=== PATIENT | male | born 1945 | race Caucasian/White ===

== ENCOUNTER 2016-11-02 00:46 | Inpatient (IN) | payer OTHER ==
[~2016-11-02] VITALS: Ht 175.3 cm; Wt 93.7 kg
[2016-11-02 02:31] LABS: EOSINOPHIL (%) 0.6 % (0-5); EOSINOPHIL COUNT 0.1 K/uL (0-0.3); HEMATOCRIT 39.9 % (38.0-50.0); IMMATURE GRANULOCYTE (%) 0.3 % (0.0-0.7); INSTRUMENT ABS NEUTROPHIL CT 6.8 K/uL; LYMPHOCYTE COUNT 1.8 K/uL (1.0-2.8); MCH 28.7 PG (29.0-34.0); MCHC 34.3 G/DL (30.0-36.0); MCV 83.6 FL (86-99); MONOCYTE (%) 7.4 % (3-12); MONOCYTE COUNT 0.7 K/uL (0-0.8); NEUTROPHIL (%) 71.9 % (45-76); NEUTROPHIL COUNT 6.8 K/uL (1.8-6.4); RBC DIS.WIDTH-CV 13.1 % (11.8-14.6); RBC DIS.WIDTH-SD 39.5 % (39-53); RED BLOOD COUNT 4.77 M/uL (4.00-5.50); WHITE BLOOD COUNT 9.4 K/uL (4.1-10.2)
[2016-11-02 03:18] LABS: CHLORIDE 110 mEq/L (99-109); POTASSIUM 3.7 mEq/L (3.7-5.4); SODIUM 144 mEq/L (136-147)
[2016-11-02 03:21] LABS: GLUCOSE 101 mg/dL (70-99)
[2016-11-02 03:22] LABS: ANION GAP 14 MEQ/L (2-14); PLAT.SUFFICIENCY ADEQUATE; TOTAL BILIRUBIN 0.8 mg/dL (0.0-1.0)
[2016-11-02 03:23] LABS: PLATELET CLUMPS PRESENT; SERUM ETHYL ALCOHOL < 10 mg/dL
[2016-11-02 03:24] LABS: ALKALINE PHOSPHATASE 69 IU/L (3-129); GFR ESTIMATE (CALCULATED) > 59 mL/min/
[2016-11-02 03:25] LABS: UREA NITROGEN (BUN) 32 mg/dL (9-23)
[2016-11-02 04:15] LABS: BASE EXCESS 4.1 mEq/L (-3 to +3); BICARBONATE 27.4 mEq/L (22-26); CARBOXY HGB 1.5 % (0-5); COMMENTS - BLOOD GASES C+; DEVICE RA; METHEMOGLOBIN 1.1 % (0-1.5); PCO2 36 mm Hg (35-45); PO2 78 mm Hg (80-100); SITE RR; pH 7.49 (7.35-7.45)
[2016-11-02 04:29] LABS: ADD MIUA? YES; BILIRUBIN NEGATIVE; BLOOD SMALL; COLOR YELLOW ((YELLOW)); GLUCOSE (STRIP) NEGATIVE; KETONES 5; LEUKOCYTES NEGATIVE; NITRITE NEGATIVE; PROTEIN (STRIP) NEGATIVE; SPECIFIC GRAVITY 1.014 (1.000-1.030); UROBILINOGEN 0.2 MG/DL (0.2-1.0)
[2016-11-02 04:39] LABS: AMPHETAMINE NEGATIVE (500 ng/mL); BACTERIA NONE SEEN /HPF; BARBITURATES NEGATIVE (200 ng/mL); BENZODIAZEPINES NEGATIVE (150 ng/mL); COCAINE NEGATIVE (150 ng/mL); EPITHELIAL CELLS RARE /HPF; INTERNAL CONTROLS VALID? YES; METHADONE NEGATIVE (200 ng/mL); METHAMPHETAMINE NEGATIVE (500 ng/mL); MUCUS TRACE /LPF; OPIATES (MORPHINE) NEGATIVE (100 ng/mL); OXYCODONE NEGATIVE (100 ng/mL); PHENCYCLIDINE NEGATIVE (25 ng/mL); PROPOXYPHENE NEGATIVE (300 ng/mL); RED BLOOD CELLS 0-5 /HPF (0-5); THC CANNABINOIDS NEGATIVE (50 ng/mL); TRICYCLIC ANTIDEPRESSANTS NEGATIVE (300 ng/mL); UCUL ADDED? NO; WHITE BLOOD CELLS 0-5 /HPF (0-5)
[2016-11-02 04:47] LABS: POTASSIUM 2.6 mEq/L (3.7-5.4)
[2016-11-02 07:30] VITALS: BP 131/78
[2016-11-02 08:28] LABS: CREATINE KINASE 3266 IU/L (1-294)
[2016-11-02 11:29] VITALS: BP 119/70
[2016-11-02 11:35] LABS: BASE EXCESS 4.2 mEq/L (-3 to +3); BICARBONATE 28.4 mEq/L (22-26); CARBOXY HGB 2.1 % (0-5); COMMENTS - BLOOD GASES A+C+; DEVICE RA; METHEMOGLOBIN 1.3 % (0-1.5); PCO2 40 mm Hg (35-45); PO2 54 mm Hg (80-100); SITE LR; pH 7.46 (7.35-7.45)
[2016-11-02 11:36] LABS: TOTAL RESP RATE 18 resp/min
[2016-11-02 12:33] LABS: TREPONEMA ANTIBODY NEGATIVE (NEGATIVE)
[2016-11-02 15:50] VITALS: BP 171/95
[2016-11-02 15:52] LABS: ALKALINE PHOSPHATASE 53 IU/L (3-129); ANION GAP 9 MEQ/L (2-14); CHLORIDE 111 MEQ/L (99-109); CREATINE KINASE 1985 IU/L (1-294); GFR ESTIMATE (CALCULATED) > 59 mL/min/; GLUCOSE 125 mg/dL (70-99); POTASSIUM 3.1 MEQ/L (3.7-5.4); SAMPLE HEMOLYSIS CHECK 0; SAMPLE ICTERIC CHECK 0; SAMPLE LIPEMIA CHECK 0; SODIUM 146 MEQ/L (136-147); TOTAL BILIRUBIN 0.8 MG/DL (0.0-1.0); UREA NITROGEN (BUN) 26 mg/dL (9-23)
[2016-11-02] MEDS ORDERED: GABAPENTIN300 MG PO (17:49)
[2016-11-02] MEDS ORDERED: LO-DOSE ASPIRIN81 M2 PO (17:50)
[2016-11-02] MEDS ORDERED: PROZAC20 MG PO (17:51)
[2016-11-02] MEDS ORDERED: CYMBALTA60 MG PO (17:52)
[2016-11-02] MEDS ORDERED: LOVAZA1 GM PO (17:52)
[2016-11-02] MEDS ORDERED: KLOR-CON M2020 MEQ PO (17:52)
[2016-11-02] MEDS ORDERED: VITAMIN B12-FO1 EACH PO (17:53)
[2016-11-02] MEDS ORDERED: GLUCOSAMINE H1500 MG PO (17:55)
[2016-11-02] MEDS ORDERED: MSM1000 M1 PO (17:56)
[2016-11-02] MEDS ORDERED: SUPER B COMPLE1 EAC2 PO (17:56)
[2016-11-02 19:25] VITALS: BP 130/64
[2016-11-02 22:58] VITALS: BP 124/70
[2016-11-03 03:50] VITALS: BP 163/90
[2016-11-03 06:36] LABS: CREATINE KINASE 1051 IU/L (1-294)
[2016-11-03 09:00] VITALS: BP 175/95
[2016-11-03 09:12] LABS: HEMATOCRIT 39.4 % (38.0-50.0); MCH 29.1 PG (29.0-34.0); MCHC 33.8 G/DL (30.0-36.0); MCV 86.2 FL (86-99); MEAN PLAT.VOLUME 9.8 uM^3 (9.0-12.4); PLATELET COUNT 216 K/uL (156-360); RBC DIS.WIDTH-CV 13.4 % (11.8-14.6); RBC DIS.WIDTH-SD 41.6 % (39-53); RED BLOOD COUNT 4.57 M/uL (4.00-5.50); WHITE BLOOD COUNT 7.8 K/uL (4.1-10.2)
[2016-11-03 09:18] LABS: ALKALINE PHOSPHATASE 56 IU/L (3-129); ANION GAP 10 MEQ/L (2-14); CHLORIDE 109 MEQ/L (99-109); GFR ESTIMATE (CALCULATED) > 59 mL/min/; GLUCOSE 101 mg/dL (70-99); POTASSIUM 3.4 MEQ/L (3.7-5.4); SODIUM 144 MEQ/L (136-147); TOTAL BILIRUBIN 0.7 MG/DL (0.0-1.0); UREA NITROGEN (BUN) 17 mg/dL (9-23)
[2016-11-03 11:58] VITALS: BP 142/83
[2016-11-03 14:50] VITALS: BP 179/88
[2016-11-03] MEDS ORDERED: LISINOPRIL5 MG PO (15:48)
[2016-11-03] MEDS ORDERED: AMLODIPINE BESY10 MG PO (15:48)
[2016-11-03] MEDS ORDERED: ERYTHROMYC1 APPLICAT RIGHT EYE (15:51)
[2016-11-03 20:00] VITALS: BP 167/96
[2016-11-03 23:51] VITALS: BP 139/87
[2016-11-04 04:20] VITALS: BP 148/92
[2016-11-04 06:32] LABS: HEMATOCRIT 37.1 % (38.0-50.0); MCH 28.5 PG (29.0-34.0); MCHC 33.7 G/DL (30.0-36.0); MCV 84.5 FL (86-99); MEAN PLAT.VOLUME 9.7 uM^3 (9.0-12.4); PLATELET COUNT 212 K/uL (156-360); RBC DIS.WIDTH-SD 39.7 % (39-53); RED BLOOD COUNT 4.39 M/uL (4.00-5.50); WHITE BLOOD COUNT 8.1 K/uL (4.1-10.2)
[2016-11-04 06:55] LABS: ALKALINE PHOSPHATASE 49 IU/L (3-129); ANION GAP 6 MEQ/L (2-14); CHLORIDE 103 MEQ/L (99-109); CREATINE KINASE 441 IU/L (1-294); GFR ESTIMATE (CALCULATED) > 59 mL/min/; GLUCOSE 125 mg/dL (70-99); POTASSIUM 2.8 MEQ/L (3.7-5.4); SAMPLE HEMOLYSIS CHECK 0; SAMPLE ICTERIC CHECK 0; SAMPLE LIPEMIA CHECK 0; SODIUM 139 MEQ/L (136-147); TOTAL BILIRUBIN 0.6 MG/DL (0.0-1.0); UREA NITROGEN (BUN) 14 mg/dL (9-23)
[2016-11-04 07:40] VITALS: BP 144/105
[2016-11-04 07:58] VITALS: BP 140/92
[2016-11-04 11:19] VITALS: BP 110/62
[2016-11-04 15:35] VITALS: BP 143/87
== END 2016-11-04 17:51 | disposition home or self-care (01) | DRG 557 ==
LOC: EME 00:46 → EDOF 05:20 → 5WEST 05:20 → EDOF 05:20 → ENRESERV 05:26 → 5WEST 07:22 → 5SOUTH 11-03 07:44 → 5WEST 11-03 07:44 → ENRESERV 11-03 07:49 → 5SOUTH 11-03 14:08
PROVIDERS: Emergency Medicine; Hospitalist; Internal Medicine
DX: M62.82 Rhabdomyolysis (principal); G93.41 Metabolic encephalopathy; E87.3 Alkalosis; I10 Essential (primary) hypertension; G25.81 Restless legs syndrome; G47.33 Obstructive sleep apnea (adult) (pediatric); Z91.19 Patient's noncompliance with other medical treatment and regimen; R55 Syncope and collapse; S00.11XA Contusion of right eyelid and periocular area, initial encounter; W19.XXXA Unspecified fall, initial encounter; Y92.009 Unspecified place in unspecified non-institutional (private) residence as the place of occurrence of the external cause; H11.31 Conjunctival hemorrhage, right eye; S00.03XA Contusion of scalp, initial encounter; E87.6 Hypokalemia; R09.02 Hypoxemia; E66.9 Obesity, unspecified; Z68.30 Body mass index [BMI] 30.0-30.9, adult; J32.9 Chronic sinusitis, unspecified; R74.0 Nonspecific elevation of levels of transaminase and lactic acid dehydrogenase [LDH]; I16.0 Hypertensive urgency; M54.2 Cervicalgia; Z87.891 Personal history of nicotine dependence; H54.61 Unqualified visual loss, right eye, normal vision left eye; H57.11 Ocular pain, right eye; M25.561 Pain in right knee; M25.562 Pain in left knee; M79.641 Pain in right hand
CPT/HCPCS: 36600; 70450; 70486; 71020; 72125; 73130; 73564; 80053; 81003; 82140; 82306; 82550; 82550 91; 82607; 82803; 84132 91; 84443; 84999; 85025; 85027; 86780; 93005; 93306; 94660; 94799; 99281; 99285; G0378; G0480; J0360; J1644; J3480; J7030